=== PATIENT | female | born 1980 | race Two or more races ===

== ENCOUNTER 2024-04-29 08:15 | Outpatient (CLI) | payer OTHER ==
[~2024-04-29 08:15] MED LIST: TYLENOL32 MG/ML PO
== END 2024-04-29 08:25 | disposition home or self-care (01) ==
LOC: SONOGRAMA 08:15
DX: E04.2 Nontoxic multinodular goiter (principal)

== ENCOUNTER 2024-05-06 07:53 | Outpatient (CLI) | payer OTHER | END 2024-05-06 08:03 | disposition home or self-care (01) | LOC: SONOGRAMA 07:53 | PROVIDERS: ATTEND Pathology Anatomic Pathology & Clinical Pathology | DX: D44.0 Neoplasm of uncertain behavior of thyroid gland (principal); E04.1 Nontoxic single thyroid nodule; R05.9 Cough, unspecified ==

== ENCOUNTER 2025-02-18 10:49 | Outpatient (CLI) | payer OTHER | END 2025-02-18 10:55 | disposition home or self-care (01) | LOC: SONOGRAMA 10:49 | DX: D34 Benign neoplasm of thyroid gland (principal); E89.0 Postprocedural hypothyroidism ==